=== PATIENT | male | born 1980 | race Asian ===

== ENCOUNTER 2022-09-22 22:25 | Emergency (ER) | payer BC ==
[~2022-09-22] VITALS: Ht 170.2 cm; Wt 68.0 kg
[2022-09-22] MEDS ORDERED: NALOXONE HCL 2 MG/2 ML SYR ONE (22:35)
--- NOTE | 2022-09-22 22:35 | NUR ---
DR. BAUMAN WITH PATIENT IN TRIAGE FOR MSE.
--- NOTE | 2022-09-22 22:45 | NUR ---
PT FROM HOME WITH C/O COUGH X 1 MONTH, PT STATES THE COUGH WORSENED THIS WEEK AND HAS NOT BEEN ABLE TO SEE PCP. PT DBP 98, MADE AWARE.
[2022-09-22 22:47] VITALS: BP_SYST 137
--- NOTE | 2022-09-22 23:20 | NUR ---
COVID AND FLU SWABS COLLECTED AND SENT TO LAB.
[2022-09-23] MEDS ORDERED: D-ME120S20 PO (00:33)
[2022-09-23] MEDS ORDERED: ALBMDI INH (00:33)
--- NOTE | 2022-09-23 00:52 | NUR ---
Patient ok with being discharged. Spoke with Dr. Perla.
--- NOTE | 2022-09-23 00:53 | NUR ---
Patient given written and verbal discharge instructions and verbalizes understanding. ER MD discussed with patient the results and treatment provided. Patient in stable condition. ID arm band removed. Rx of albuterol and promethazine given. Patient educated on pain management and to follow up with PMD. Pain Scale . Opportunity for questions provided and answered. Medication side effect fact sheet provided.
[2022-09-23 00:54] VITALS: BP_SYST 137
== END 2022-09-23 00:54 | disposition home or self-care (01) ==
LOC: SED 22:25
DX: J06.9 Acute upper respiratory infection, unspecified (principal); R05.9 Cough, unspecified; R50.9 Fever, unspecified; F17.200 Nicotine dependence, unspecified, uncomplicated; Z79.899 Other long term (current) drug therapy; Z20.822 Contact with and (suspected) exposure to COVID-19
CPT/HCPCS: 99284; 71045; 87426; 36415; 87804 ×2; J2310